=== PATIENT | male | born 1990 ===

== ENCOUNTER 2022-02-17 13:26 | Emergency (ER) | payer OTHER ==
[2022-02-17] MEDS ORDERED: Sodium Chloride 0.9% 10 ML Syringe FLUSH PRN (13:48)
[2022-02-17] MEDS ORDERED: methylPREDNISolone Sodium Succinate 125 MG/2 ML SDV IVPUSH ONE (14:07)
[2022-02-17] MEDS ORDERED: Albuterol/Ipratropium 3.0-0.5 MG/3 ML Neb Soln NEB ONE (14:07)
== END 2022-02-17 15:44 | disposition home or self-care (01) ==
LOC: JD.ED 13:26
DX: J45.909 Unspecified asthma, uncomplicated (principal)
CPT/HCPCS: 36415; 71046; 80053; 84484; 85025; 85379; 86140; 93005; 94640; 96374; 99285; J2930; 93010; J3490; J7620-GY